=== PATIENT | male | born 1995 | race Caucasian/White ===

== ENCOUNTER 2019-09-26 14:29 | Emergency (ER) | payer OTHER ==
[~2019-09-26] VITALS: Ht 167.6 cm; Wt 103.5 kg
[2019-09-26 15:23] LABS: BASO # 0.1 10^3/uL (0.0-0.2); BASO % 0.9 % (0.0-1.0); EOS # 0.1 10^3/uL (0.0-0.5); EOS % 0.9 % (0.0-3.0); HEMATOCRIT 45.6 % (42.0-52.0); HEMOGLOBIN 16.1 g/dl (13.5-17.5); LYMPH # 2.5 10^3/uL (1.5-5.0); LYMPH % 35.2 % (24.0-44.0); MEAN CORPUSCULAR HEMOGLOBIN 31.8 pg (27.0-33.0); MEAN CORPUSCULAR HGB CONC 35.3 g/dl (32.0-36.5); MEAN CORPUSCULAR VOLUME 90.1 fl (80.0-96.0); MONO # 0.5 10^3/uL (0.0-0.8); MONO % 6.4 % (0.0-5.0); NEUTROPHILS % 56.3 % (36.0-66.0); PLATELET COUNT, AUTOMATED 261 10^3/uL (150-450); RED BLOOD COUNT 5.06 10^6/uL (4.30-6.10)
[2019-09-26 15:55] LABS: ALBUMIN 4.4 GM/DL (3.2-5.2); BILIRUBIN,DIRECT 0.1 MG/DL (0.0-0.2); BILIRUBIN,TOTAL 0.7 MG/DL (0.2-1.0); TOTAL PROTEIN 7.5 GM/DL (6.4-8.2)
[2019-09-26] MEDS ORDERED: ISOVUE-370 76% 100ML VIAL (Q9967) As Ordered ONE (15:58)
--- NOTE | 2019-09-26 16:33 | REP ---
CT of the abdomen and pelvis with IV contrast, without bowel contrast for right lower quadrant abdominal pain and diarrhea: There are no comparison studies. The visualized lung shanks are unremarkable. The hepatic parenchyma is homogeneous. The gallbladder, pancreas and spleen are unremarkable. The adrenals, kidneys and abdominal aorta are unremarkable. There is no periaortic adenopathy or mass. There is mild wall thickening of the descending colon. This is nonspecific but could represent colitis in the appropriate clinical setting. The bowel and mesentery are otherwise unremarkable. Pelvis: The appendix and terminal ileum are unremarkable. There is no ascites. The bladder is unremarkable. There is no adenopathy. Impression: Mild wall thickening of the descending colon, nonspecific, but could represent colitis in the appropriate clinical setting. The appendix and terminal ileum are unremarkable. There is no ascites or adenopathy. No mass. Otherwise, negative CT of the abdomen and pelvis.. Electronically Signed by Alfred Shah MD 09/26/2019 04:24 P
[2019-09-26 16:44] LABS: APPEARANCE, URINE CLEAR (CLEAR); BACTERIA, URINE AUTO NEGATIVE (NEGATIVE); BILIRUBIN, URINE AUTO NEGATIVE (NEGATIVE); BLOOD, URINE BLOOD NEGATIVE (NEGATIVE); COLOR, URINE YELLOW (YELLOW); GLUCOSE, URINE (UA) AUTO NEGATIVE (NEGATIVE); KETONE, URINE AUTO NEGATIVE (NEGATIVE); LEUKOCYTE ESTERASE, URINE AUTO NEGATIVE (NEGATIVE); NITRITE, URINE AUTO NEGATIVE (NEGATIVE); PROTEIN, URINE AUTO NEGATIVE (NEGATIVE); RBC, URINE AUTO 1 /HPF (0-3); SPECIFIC GRAVITY URINE AUTO 1.014 (1.002-1.035); SQUAMOUS EPITHELIAL CELL UR AU 0 /HPF (0-6); UROBILINOGEN, URINE AUTO 0.2 mg/dL (0.0-2.0); WBC, URINE AUTO 0 /HPF (0-3)
[2019-09-26] MEDS ORDERED: PRED10TA2 PO (17:30)
[2019-09-26 17:54] VITALS: BP 127/77
== END 2019-09-26 17:55 | disposition home or self-care (01) ==
LOC: M ED 14:29
DX: K51.90 Ulcerative colitis, unspecified, without complications (principal); R19.7 Diarrhea, unspecified; F17.210 Nicotine dependence, cigarettes, uncomplicated
CPT/HCPCS: 36415; 74177; 80047; 80076; 81001; 82150; 83690; 85025; 99284; Q9967